=== PATIENT | male | born 1965 | race Caucasian/White ===

== ENCOUNTER → 2018-10-04 | Day surgery (SDC) | payer OTHER ==
--- NOTE | 2018-10-02 13:00 | Diagnostic Imaging Report ---
Frontal and lateral views of the chest. HISTORY: Preadmission, right foot pain COMPARISON: None available. DISCUSSION: Lungs: Low lung volumes result in bibasilar vascular crowding, accentuation of the pulmonary interstitial markings, central pulmonary vasculature, and the cardiac silhouette. Allowing for these limitations, the findings are as follows: No evidence of a consolidative pneumonia or pulmonary alveolar edema. Pleura: No pleural effusion or pneumothorax. Heart and mediastinum: The cardiomediastinal silhouette appears unremarkable. Bones: No acute osseous lesion. IMPRESSION: No acute radiographic abnormality. Signed by: Dr. Joni Tellez D.O., M.M.M. on 10/02/2018 12:57 PM
[2018-10-02 13:01] LABS: BASOPHILS % 0.8 % (0.0-1.0); EOSINOPHILS # (AUTO) 0.1 (0.0-0.4); EOSINOPHILS % 2.7 % (0.0-6.0); HEMATOCRIT 43.3 % (38.2-49.6); HEMOGLOBIN 14.6 g/dL (14.0-18.0); LYMPHOCYTES # (AUTO) 1.4 (1.0-3.2); LYMPHOCYTES % 28.8 % (18.0-39.1); MEAN CORPUSCULAR HEMOGLOBIN 30.9 pg (28-32); MEAN CORPUSCULAR HGB CONC 33.7 g/dL (31-35); MEAN CORPUSCULAR VOLUME 91.7 fL (81-99); MONOCYTES # (AUTO) 0.5 (0.2-0.8); MONOCYTES % 11.1 % (4.4-11.3); NEUTROPHILS # (AUTO) 2.7 (2.1-6.9); NEUTROPHILS % 56.2 % (38.7-80.0); PLATELET COUNT 274 x10e3/uL (140-360); RED BLOOD COUNT 4.72 x10e6/uL (4.3-5.7); RED CELL DISTRIBUTION WIDTH 13.6 % (11.7-14.4)
[2018-10-02 13:19] LABS: ANION GAP 12.7 mmol/L (8-16); BLOOD UREA NITROGEN 15 mg/dL (7-26); BUN/CREATININE RATIO 17 (6-25); CALCIUM 9.8 mg/dL (8.4-10.2); CARBON DIOXIDE 25 mmol/L (22-29); CHLORIDE 106 mmol/L (98-107); CREATININE, SERUM 0.86 mg/dL (0.72-1.25); EST GLOMERULAR FILTRATION RATE > 60 ML/MIN (60-); GLUCOSE 93 mg/dL (74-118); POTASSIUM 4.7 mmol/L (3.5-5.1); SODIUM 139 mmol/L (136-145)
[~2018-10-04] MED LIST: BUPIVACAINE HCL 0.5% 10ML MPF VIAL INJ ONE; BUPIVACAINE HCL 0.5% INJ 30 ML VIAL INJ ONE; CEFAZOLIN SOD 2 GM/D5W 50ML 50 ML IV ONE; DEXAMETHASONE SOD PHOS INJ 4 MG/ML VIAL ONE; FENTANYL CITRATE/PF 100MCG/2 ML INJ ONE; HUMIRA40 MG/0.1 INJ; KETOROLAC TROMETHAMINE 30 MG/ML VIAL ONE; LIDOCAINE HCL 2% LOCAL INJ 5 ML SDV VIAL INJ ONE; MIDAZOLAM HCL 2 MG/2 ML VIAL ONE; MUPIROCIN 2% OINT 22 GM TUBE ONE; ONDANSETRON HCL INJ 2 MG/ML VIAL ONE; PROPOFOL IV EMULSION 10 MG/ML 20 ML VIAL ONE; SEVOFLURANE INHAL SOLN 250 ML PEN BTL ONE
--- OUTSIDE RECORDS SUMMARY | 2018-10-04 07:33 | XMS REPORT ---
[facility] Address Unknown Phone Unavailable Care Team Providers Care [employer]ader Name Role Phone JOSE CHIU Unavailable Unavailable Problems This patient has no known problems. Allergies, Adverse Reactions, Alerts This patient has no known allergies or adverse reactions. Medications This patient has no known medications. Results Test Description Test Time Test Comments Text Results Atomic Results Result Comments CHEST 2 VIEWS 2018-10-02 12:56:00 [place] [address] Patient Name: CHADD AMBROSE JR MR #: [id number] : 1965 Age/Sex: 53/M Req #: [id number] Adm Physician: Ordered by: JOSE CHIU DPM Report #: [id number] Location: OR Room/Bed: Procedure: [id number] DX/CHEST 2 VIEWS Exam Date: 10/02/18 Exam Time: 1241 REPORT STATUS: Signed Frontal and lateral views of the chest. HISTORY: Preadmission, right foot pain COMPARISON: None available. DISCUSSION: Lungs: Low lung volumes result in bibasilar vascular crowding, accentuation of the pulmonary interstitial markings, central pulmonary vasculature, and the cardiac silhouette. Allowing for these limitations, the findings are as follows: No evidence of a consolidative pneumonia or pulmonary alveolar edema. Pleura: No pleural effusion or pneumothorax. Heart and mediastinum: The cardiomediastinal silhouette appears unremarkable. Bones: No acute osseous lesion. IMP RESSION: No acute radiographic abnormality. Signed by: Dr. Zoraida Barajas D.O., M.M.M. on 10/02/2018 12:57 PM Dictated By: ZORAIDA BARAJAS DO 1257 Transcribed By: TOMASA on 10/02/18 1257 COPY TO: JOES CHIU DPM
[2018-10-04 14:20] VITALS: BP 167/93
--- NOTE | 2018-10-07 13:53 | Operative Report ---
DATE OF PROCEDURE: PREOPERATIVE DIAGNOSES 1. Hallux abductor valgus deformity, severe, right foot. 2. Subluxation of 1st metatarsal cuneiform joint, right foot. 3. Rigidly contracted hammertoe, 2nd digit, right foot. ANESTHESIA: General endotracheal. HEMOSTASIS: Right thigh tourniquet at 350 mmHg. PROCEDURES 1. Fusion of the 1st metatarsal cuneiform joint, right foot. 2. Durant bunionectomy, right foot. 3. Arthrodesis, 2nd metatarsophalangeal joint, right foot. PROCEDURE IN DETAIL: The patient was taken to the operating room in a mildly sedated state, and placed upon the operating table in the supine position. Following induction of general anesthetic, the right lower extremity was elevated 60 degrees to exsanguinate before inflating the pneumatic thigh tourniquet to 350 mmHg for hemostasis. Right lower extremity placed on the operating table prior to performing the following procedure. PROCEDURE #1: Lapidus bunionectomy with a fusion of the 1st metatarsal cuneiform joint of the right foot. An approximate 6 cm dorsal linear incision was made from the 1st metatarsophalangeal joint all the way to the 1st metatarsal cuneiform joint on the right foot. The incision was deepened via sharp and blunt dissection down to the level of the dorsal capsular structure. Care was taken to identify and retract all vital structures encountered. The head of the 1st metatarsal was at the level of the surgical site and remodeled utilizing an oscillating saw. The conjoined tendon of the adductor hallucis muscle was identified and tenotomized. Fibular sesamoid freed from its constricted position. The hallux was significantly contracted overlying the 2nd digit and the 2nd digit was rigidly contracted. The head of the 1st metatarsal was enlarged, and the IM angle was very large. Attention was directed back to the base of the 1st metatarsal for the fusion of the 1st metatarsal cuneiform joint. Once this was exposed surgically, the joint itself was dissected free utilizing an oscillating saw, both short and long, and then ultimately an osteotome and mallet. The base of the 1st and 2nd metatarsals were remodeled with the head of the cuneiform. The distal portion of the cuneiform remodeled as well. This allowed for realignment of the 1st intermetatarsal angle, which was then clamped with Les to be held in place and fixated with 2 cortical bone screws, as well as 2 dorsal leonardo. This having been accomplished, the area was irrigated with copious amounts of sterile saline solution. Excellent alignment was noted. Attention was directed down to the head of 1st metatarsophalangeal joint. The head was noted to be significantly hypertrophic. 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 A K-wire was used and a 2-0 drill to fenestrate the head of the 1st metatarsal in the areas where the cartilage was completely devoid. The medial eminence was further remodeled, and the area was irrigated with copious amounts of sterile saline solution to the greatest extent possible. The sesamoid apparatus was appropriately repaired to remain underneath the 1st metatarsophalangeal joint with capsule and tendon balancing procedures having been performed. The area was then irrigated and closed with 3-0 Vicryl, 4-0 Vicryl and 4-0 nylon. The appropriate mildly compressive dressings were applied. A posterior splint was applied on the right foot. The hammertoe was approached next with rigidly contracted hammer toe on the 2nd digit. A linear longitudinal incision was made overlying the head of the proximal phalanx. The head was remodeled utilizing the cup and cone reamers from the [employer] set. The head having thus been remodeled and the base remodeled as well, and fenestrated the appropriate size implant was selected and applied. This having been accomplished, an excellent alignment was noted. K-wire was extended through the distal tip to maintain the alignment. The area was irrigated with copious amounts of sterile saline solution. Deep closure was 3-0 Vicryl, subcutaneous closure with 4-0 Vicryl and skin closure with 4-0 nylon. All the were injected with 0.5 Marcaine and Decadron [place]. Human tissue allograft was used to facilitate healing in all these difficult to heal areas. Release of the pneumatic thigh tourniquet showed a normal hyperemic flush to all digits of the right foot. Patient left the operating room with vital signs stable and in apparent satisfactory condition having tolerated both anesthetic and procedure very well. Job#: [id number]
== END | disposition home or self-care (01) ==
LOC: OR 07:30
PROVIDERS: ATTEND Podiatrist Foot Surgery
DX: M20.11 Hallux valgus (acquired), right foot (principal); M20.41 Other hammer toe(s) (acquired), right foot; M79.671 Pain in right foot; Z01.810 Encounter for preprocedural cardiovascular examination; Z01.812 Encounter for preprocedural laboratory examination; Z01.811 Encounter for preprocedural respiratory examination; S93.141A Subluxation of metatarsophalangeal joint of right great toe, initial encounter
CPT/HCPCS: 28285; 28297; 36415; 71046; 76001; 80048; 85025; 93005; C1713 ×3; J0690; J1100; J1885; J2001; J2250; J2405; J2704